=== PATIENT | male | born 1980 | race African-American/Black ===

== ENCOUNTER 2023-12-30 22:53 | Inpatient (IN) | payer OTHER ==
[~2023-12-30] VITALS: Ht 198.1 cm; Wt 136.0 kg
[2023-12-30 23:06] VITALS: O2SAT 97
[2023-12-31] MEDS ORDERED: LABETALOL HCL VIAL 20 MG/4 ML VIAL IV ONE
[2023-12-31 00:13] LABS: BASOPHILS % 0.5 % (0.0-2.0); DIFFERENTIAL COMMENT 0; EOSINOPHILS % 5.3 % (0.0-5.0); HEMATOCRIT. 45.8 % (42.0-52.0); HEMOGLOBIN. 15.6 g/dL (14.0-18.0); LYMPHOCYTES % 38.5 % (20.0-50.0); MEAN CORPUSCULAR HEMOGLOBIN 34.1 pg (28.0-32.0); MEAN CORPUSCULAR VOLUME 100.1 fL (80.0-94.0); MEAN PLATELET VOLUME 9.5 fl (7.4-10.4); MONOCYTES % 11.7 % (2.0-8.0); PLATELET 205 x1000/uL (130-400); RED BLOOD CELL COUNT 4.58 mill/uL (4.7-6.1); RED CELL DISTRIBUTION WIDTH 14.7 % (11.6-14.6); WHITE BLOOD COUNT 4.1 x1000/uL (4.5-11.0)
[2023-12-31 00:20] LABS: CHLORIDE 107 mEq/L (98-107); POTASSIUM 3.4 mEq/L (3.5-5.1); SODIUM 141 mEq/L (136-145)
[2023-12-31 00:21] LABS: CARBON DIOXIDE 22 mEq/L (21-32); CREATININE 1.1 mg/dL (0.6-1.3); GLUCOSE 107 mg/dL (70-105); UREA NITROGEN BLOOD 8 mg/dL (9-23)
[2023-12-31 00:22] LABS: CALCIUM 8.6 mg/dL (8.7-10.4); ETHANOL BLOOD 300 mg/dL (<10)
[2023-12-31 00:23] LABS: ALANINE AMINOTRANSFERASE 122 IU/L (10-49); ALBUMIN 4.4 g/dL (3.2-4.8); ASPARTATE AMINOTRANSFERASE 307 IU/L (<34)
[2023-12-31 00:24] LABS: BILIRUBIN TOTAL 0.5 mg/dL (0.1-1.0); PROTEIN TOTAL 8.7 g/dL (6.0-8.3)
[2023-12-31 00:26] LABS: PROTHROMBIN TIME 10.9 sec (9.6-11.0)
[2023-12-31 00:29] LABS: TROPONIN I HIGH SENSITIVITY 66 ng/L (3.0-53)
[2023-12-31] MEDS: ONDANSETRON HCL 4MG/2ML INJ IV ONE (00:40)
[2023-12-31] MEDS: MORPHINE SULFATE 4 MG/ML INJ (FOR IV/IM USE) IV ONE ×2 (00:42→01:05)
[2023-12-31] MEDS: LABETALOL 5MG/ML SYR 20 MG/4 ML SYRINGE IV NR (00:50)
[2023-12-31] MEDS: NICARDIPINE 40MG/200ML PREMIX 200 ML IV PRN (01:34)
[2023-12-31 02:09] LABS: CLARITY URINE CLEAR (CLEAR); COLOR URINE YELLOW (YELLOW); GLUCOSE URINE NEGATIVE (NEGATIVE); KETONES URINE TRACE (NEGATIVE); LEUKOCYTE ESTERASE URINE NEGATIVE (NEGATIVE); NITRITE URINE NEGATIVE (NEGATIVE); OCCULT BLOOD URINE NEGATIVE (NEGATIVE); PH URINE 5.5 (4.5-8.0); PROTEIN URINE TRACE (NEGATIVE); SPECIFIC GRAVITY URINE 1.052 (1.005-1.030)
[2023-12-31 02:16] LABS: *AMPHETAMINES SCREEN URINE NEGATIVE (NEGATIVE); *BARBITURATES SCREEN URINE NEGATIVE (NEGATIVE); *BENZODIAZEPINES SCREEN URINE NEGATIVE (NEGATIVE); *COCAINE SCREEN URINE NEGATIVE (NEGATIVE); CANNABINOID URINE SCREEN NEGATIVE (NEGATIVE); ECSTASY MDMA SCREEN URINE NEGATIVE (NEGATIVE); METHADONE URINE SCREEN Neg (NEGATIVE); OPIATES URINE SCREEN PRESUMPTIVE POSITIVE (NEGATIVE); PHENCYCLIDINE URINE SCREEN NEGATIVE (NEGATIVE)
[2023-12-31] MEDS: IOHEXOL-350 100 ML BOTTLE ONE (03:05)
[2023-12-31] MEDS: ASPIRIN 325MG EC TABLET PO ONE (04:06)
[2023-12-31 05:19] VITALS: TEMP 98.6
[2023-12-31 05:32] LABS: BACTERIA URINE NONE SEEN; RBC URINE 0-2 /hpf (0-2); SQUAMOUS EPITHELIAL CELL URINE RARE /lpf (RARE/1+); WBC URINE 0-2 /hpf (0-2)
[2023-12-31] MEDS ORDERED: ONDANSETRON HCL 4MG/2ML INJ IV PRN (06:15)
[2023-12-31] MEDS ORDERED: POTASSIUM CHLORIDE 20 MEQ in DEXT 5% WATER 90 ML IV ONE (06:15)
[2023-12-31] MEDS ORDERED: IPRATROPIUM/ALBUTEROL 0.5-3(2.5)MG/3ML NEB HHN PRN (06:15)
[2023-12-31] MEDS ORDERED: NITROGLYCERIN 0.4MG TABLET SL SL PRN (06:15)
[2023-12-31] MEDS ORDERED: ACETAMINOPHEN 650MG/20.3ML UDC GT PRN (06:15)
[2023-12-31 06:54] LABS: CHLORIDE 105 mEq/L (98-107); POTASSIUM 3.4 mEq/L (3.5-5.1); SODIUM 141 mEq/L (136-145)
[2023-12-31 06:55] LABS: CALCIUM 8.1 mg/dL (8.7-10.4); CARBON DIOXIDE 26 mEq/L (21-32)
[2023-12-31 07:00] LABS: CREATININE 1.1 mg/dL (0.6-1.3); GLUCOSE 112 mg/dL (70-105); UREA NITROGEN BLOOD 8 mg/dL (9-23)
[2023-12-31 07:02] LABS: ALANINE AMINOTRANSFERASE 112 IU/L (10-49); ALBUMIN 4.1 g/dL (3.2-4.8); AMYLASE 100 IU/L (30-118); ASPARTATE AMINOTRANSFERASE 240 IU/L (<34); BILIRUBIN TOTAL 0.6 mg/dL (0.1-1.0); PROTEIN TOTAL 7.6 g/dL (6.0-8.3)
[2023-12-31 07:18] LABS: FOLIC ACID (FOLATE) SERUM 7.83 ng/mL (>5.38); VITAMIN B12 SERUM 813 pg/mL (211-911)
[2023-12-31] MEDS: KCL 20MEQ/100ML PREMIX 100 ML IV NR (08:20)
[2023-12-31] MEDS: MVI, ADULT NO.1 10 ML, FOLIC ACID 1 MG, THIAMINE HCL 100 MG in SODIUM CHLORIDE 0.9% 1,0... IV ONE (08:21)
[2023-12-31] MEDS: PANTOPRAZOLE SODIUM 40 MG/VIAL IV SCH (08:23)
[2023-12-31] MEDS: AMLODIPINE 5MG TABLET PO SCH (08:23)
[2023-12-31] MEDS ORDERED: LOSARTAN 100 MG TABLET PO SCH (09:15)
[2023-12-31] MEDS ORDERED: AMLODIPINE 5MG TABLET PO NR (09:15)
[2023-12-31] MEDS: ENOXAPARIN 30MG/0.3ML SYR SUBCUT SCH (09:30)
[2023-12-31] MEDS: NITROGLYCERIN OINT 1GM/INCH UDPKT TD SCH (09:30)
[2023-12-31] MEDS: MORPHINE SULFATE 2 MG/ML CPJ (NOT FOR IM USE) IV NR (09:35)
[2023-12-31] MEDS: AMLODIPINE 5MG TABLET PO NR (09:35)
[2023-12-31] MEDS ORDERED: AMLODIPINE 5MG TABLET PO ONE (10:15)
[2023-12-31] MEDS: HYDRALAZINE 20MG/ML VIAL IV PRN (10:28)
[2023-12-31 11:03] VITALS: BP 149/78; PULSE 120; RESP 14
[2024-01-01] MEDS ORDERED: AMLODIPINE 10MG TABLET PO SCH (09:00)
== END 2023-12-31 12:39 | disposition left against medical advice (07) | DRG 281 ==
LOC: EDBD 22:53 → ER 22:53 → MICUSO 12-31 03:39 → 7EST 12-31 11:00
PROVIDERS: ADMIT Internal Medicine; ATTEND Internal Medicine
DX: I21.4 Non-ST elevation (NSTEMI) myocardial infarction (principal); I16.1 Hypertensive emergency; I10 Essential (primary) hypertension; Z91.148 Patient's other noncompliance with medication regimen for other reason; E87.6 Hypokalemia; F10.229 Alcohol dependence with intoxication, unspecified; Z53.29 Procedure and treatment not carried out because of patient's decision for other reasons; F17.200 Nicotine dependence, unspecified, uncomplicated; K57.30 Diverticulosis of large intestine without perforation or abscess without bleeding; K42.9 Umbilical hernia without obstruction or gangrene
CPT/HCPCS: 36415; 71045; 71275; 74174; 75635; 76700; 80053; 80305; 80320; 81003; 82150; 82607; 82746; 83735; 83880; 84484; 85025; 85379; 93005; 99291; C9113; J0360; J1650; J2270; J2405; J3411; J3480; J3490; J7030; Q9967; G0480